=== PATIENT | female | born 1995 | race Caucasian/White ===

== ENCOUNTER 2018-09-08 23:56 | Emergency (ER) | payer SELFPAY ==
[~2018-09-08] VITALS: Ht 157.5 cm; Wt 119.7 kg
--- OUTSIDE RECORDS SUMMARY | 2018-09-09 00:02 | XMS REPORT ---
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 Role Phone NICKI MCINTOSH Unavailable PROBLEMS Unknown Problems ALLERGIES Substance Reaction Event Type Date Status Amoxicillin rash Drug Allergy Mar, Active ENCOUNTERS Encounter Location Date Diagnosis [facility] [address] [place] [id number] Apr, [facility] [address] [place] [id number] Mar, Dental examination Z01.20 and Caries K02.9 IMMUNIZATIONS No Known Immunizations SOCIAL HISTORY Never Assessed REASON FOR VISIT EMELY LEACH PLAN OF CARE Activity Details Follow Up 45 MIN TE Reason:14 AND 16 VITAL SIGNS MEDICATIONS Medication Instructions Dosage Frequency Start Date End Date Duration Status Magic Mouthwash Apply medicated swab to sore areas of the mouth to numb the pain As needed Dip cotton swab into medication Mar, As needed Active Align 4 MG Orally Once a day 1 capsule 24h Mar, 14 days Active Clindamycin HCl 300 MG Orally every 6 hrs 1 capsule 6h Mar, 10 days Active Keflex Active Risperidone Active Zoloft Active Vistaril Active HydrOXYzine Pamoate Active Topamax Active RESULTS No Results PROCEDURES Procedure Date Ordered Result Body Site LTD ORAL EVALUATION - PROBLEM FOCUS Apr 17, 2018 PANORAMIC FILM SEE ALSO CODE [id number] Apr 17, 2018 INSTRUCTIONS MEDICATIONS ADMINISTERED No Known Medications MEDICAL (GENERAL) HISTORY Type Description Date Medical History ARTHRIS Medical History back trouble Medical History thyroid problems Surgical History tumor removed 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
[2018-09-09] MEDS ORDERED: HYDROXYZINE PAMOATE 50 MG (00:22)
[2018-09-09] MEDS ORDERED: PRAZOSIN HCL 1 MG (00:22)
[2018-09-09] MEDS ORDERED: RISPERIDONE 3 MG (00:22)
[2018-09-09] MEDS ORDERED: ARIPIPRAZOLE 5 MG (00:22)
[2018-09-09] MEDS ORDERED: SERTRALINE 100MG (00:22)
[2018-09-09] MEDS ORDERED: TOPIRAMATE 25 MG (00:22)
[2018-09-09] MEDS ORDERED: ALB0.5V (00:25)
[2018-09-09] MEDS ORDERED: RIZA10TA23 PO (00:29)
[2018-09-09] MEDS ORDERED: diphenhydrAMINE 50 MG/ML INJ (BENADRYL) IM ONE (02:00)
[2018-09-09] MEDS ORDERED: KETOROLAC 60 MG/2 ML VIAL IM ONE (02:00)
--- NOTE | 2018-09-09 02:08 | ED Headache ---
General Chief Complaint: Head/Cervical Problems Stated Complaint: MIGRAINE,BLOODY NOSE,BP 181/67 Nursing Triage Note: c/o migraine with bloody nose and took her blood pressure and found it to be 161/87. felt she needed to be re-evaluated. Nursing Sepsis Screen: No Definite Risk Source: patient History of Present Illness Date Seen by Provider: Sep 09, 2018 Time Seen by Provider: 01:45 Initial Comments 23 yo F presenting with high blood pressure at home and headache as well as recurrent nosebleeds. She was having this ongoing for t he last month or so. It comes and goes for her. She was following with her provider from the clinic. They were recommending she get a CT scan and plan follow up from there. She was to take Maxalt for her headaches but she states it was not helping as much and she is out of it. Tonight her bp was up when she checked it at home and she was having nosebleeds again. She did not take anything for this and came to the ED. Usually she tries to take a cool wash cloth and put it over her eyes and her neck and this helps her some with the pain and her headache. She has improving on her nosebleed by the time she arrives in the ED without any intervention. Her Blood pressure was also improving by the time sh e arrived without having any treatment. Allergies and Home Medications Allergies Coded Allergies: amoxicillin (Verified Allergy, Unknown, 09/09/18) Uncoded Allergies: LYSOL (Allergy, Unknown, cannot breathe, 09/09/18) SEASONAL (Allergy, Unknown, 09/09/18) Patient Home Medication List Home Medication List Reviewed: Yes Review of Systems Review of Systems Constitutional: dizziness; No weakness Eyes: Photophobia Ears, Nose, Mouth, Throat: denies ear pain, denies nose discharge; epistaxis Respiratory: No cough, No short of breath Cardiovascular: No chest pain Gastrointestinal: No nausea, No vomiting Genitourinary: No dysuria, No frequency, No hesitancy, No incontinence Musculoskeletal: no symptoms reported Skin: No rash Past Nuoummz-Tgfdfb-Dztmha Hx Past Med/Social Hx: Reviewed Nursing Past Med/Soc Hx Patient Social History Alcohol Use: Denies Use Recreational Drug Use: No Smoking Status: Current Everyday Smoker Type Used: Cigarettes Recent Foreign Travel: No Contact w/Someone Who Travel: No Recent Infectious Disease Expo: No Recent Hopitalizations: No Physical Abuse: No Sexual Abuse: No Mistreated: No Fear: No Seasonal Allergies Seasonal Allergies: Yes Past Medical History Surgeries: Yes ("hernia mesh" "cyst removed from L foot") Gallbladder Respiratory: Yes Asthma Currently Using CPAP: No Currently Using BIPAP: No Cardiac: No Neurological: Yes Headaches /Migraines : No Hx : 0 Hx Para: 0 Hx Total # of Abortions (Sp): 0 Genitourinary: No Gastrointestinal: No Musculoskeletal: No Endocrine: No HEENT: No Cancer: No Psychosocial: Yes Schizophrenia Blood Disorders: No Physical Exam Vital Signs Vital Signs - First Documented 09/09/18 09/09/18 00:07 02:43 Temp 98.7 Pulse 79 Resp 18 B/P (MAP) 142/87 (105) Pulse Ox 98 Capillary Refill : Less Than 3 Seconds Height, Weight, BMI Height: 5'2.00" Weight: 264lbs. oz. 119.167421be; BMI Method:Stated General Appearance: WD/WN, no apparent distress HEENT: PERRL/EOMI, normal ENT inspection, TMs normal, pharynx normal Neck: non-tender, full range of motion, supple, normal inspection Cardiovascular: normal peripheral pulses, regular rate, rhythm Respiratory: chest non-tender, lungs clear, normal breath sounds, no respiratory distress, no accessory muscle use Gastrointestinal: normal bowel sounds, non tender, soft, no pulsatile mass Extremities: normal range of motion, non-tender, normal inspection, no pedal edema Psychiatric: alert, oriented x 3 Crainal Nerves: normal speech, PERRL Coordination/Gait: normal gait Motor/Sensory: no motor deficit, no sensory deficit Skin: normal color, warm/dry Lymphatic: no adenopathy Progress/Results/Core Measures Results/Orders My Orders Orders - GABRIELLE CAMPOS MD Ct Head Wo (09/09/18 01:56) Ketorolac Injection (Toradol Injection) (09/09/18 02:00) Diphenhydramine Injection (Benadryl Inje (09/09/18 02:00) Medications Given in ED Vital Signs/I&O 09/09/18 09/09/18 00:07 02:43 Temp 98.7 98.6 Pulse 79 82 Resp 18 20 B/P (MAP) 142/87 (105) 131/68 (89) Pulse Ox 98 Blood Pressure Mean: 105 Progress Progress Note #1: Progress Note Will try to treat with toradol and benadryl IM and see if that helps her headache. Will also check the CT head to look for other reasons for her HENRY and the nosebleeds. Her blood pressure and nosebleeds both improved without treatment before arrival in the ED. Progress Note #2: Progress Note She is having improved pain and symptoms with treatment. Her CT head was read as no acute findings. Counseled to follow up with clinic for continued concerns. May need Neuro follow up Diagnostic Imaging Diagonstic Imaging: CT Plain Films/CT/US/NM/MRI: head Comments NAME: SANJEEV ROSAS [facility] REC#: [id number] PT STATUS: DEP ER : 1995 PHYSICIAN: GABRIELLE CAMPOS MD ADMIT DATE: 09/08/18/ER FS Signed Date of Exam:09/09/18 CT HEAD WO PROCEDURE: CT head without contrast. TECHNIQUE: Multiple contiguous axial images were obtained through the brain without the use of intravenous contrast. Auto Exposure Controls were utilized during the CT exam to meet ALARA standards for radiation dose reduction. INDICATION: Migraine with bloody nose. FINDINGS: There is no evidence of intracranial hemorrhage. Ventricles and cortical gyral pattern are normal. There is no mass effect. Basal cisterns are clear. CP angles are normal. Good aeration of the mastoid air cells. Paranasal sinuses are clear. No calvarial fracture. IMPRESSION: Negative CT head without contrast. Dictated by: Dictated on workstation # [id number] Dict: 09/09/18 0739 Trans: 09/09/18 0814 ZAC [id number] Interpreted by: ENID JARAMILLO MD Electronically signed by: ENID JARAMILLO MD 09/09/18 0814 Departure Impression Primary Impression: Migraine Qualified Codes: G43.919 - Migraine, unspecified, intractable, without status migrainosus Additional Impressions: Anterior epistaxis Labile hypertension Disposition: 01 HOME, SELF-CARE Condition: Stable Departure-Patient Inst. Decision time for Depature: 02:30 Referrals: CARMELINA JONES MD (PCP) Primary Care Physician Patient Instructions: Migraine Headache (DC), Nosebleeds (DC) Add. Discharge Instructions: Follow up with clinic about your recurrent headaches and nosebleeds with high blood pressure. The CT scan of your head tonight did not show any acute findings and was normal, not showing a reason for your headaches or nosebleeds. All discharge instructions reviewed with patient and/or family. Voiced understanding. GABRIELLE CAMPOS MD Sep 09, 2018 02:08
[2018-09-09 02:43] VITALS: BP 131/68
--- NOTE | 2018-09-09 07:41 | Diagnostic Imaging Report ---
PROCEDURE: CT head without contrast. TECHNIQUE: Multiple contiguous axial images were obtained through the brain without the use of intravenous contrast. Auto Exposure Controls were utilized during the CT exam to meet ALARA standards for radiation dose reduction. INDICATION: Migraine with bloody nose. FINDINGS: There is no evidence of intracranial hemorrhage. Ventricles and cortical gyral pattern are normal. There is no mass effect. Basal cisterns are clear. CP angles are normal. Good aeration of the mastoid air cells. Paranasal sinuses are clear. No calvarial fracture. IMPRESSION: Negative CT head without contrast. Dictated by: Dictated on workstation # [id number]
== END 2018-09-09 02:43 | disposition home or self-care (01) ==
LOC: EDUNIT# 23:56 → ER FS 23:59
DX: G43.909 Migraine, unspecified, not intractable, without status migrainosus (principal); R04.0 Epistaxis; R03.0 Elevated blood-pressure reading, without diagnosis of hypertension; J45.909 Unspecified asthma, uncomplicated; F20.9 Schizophrenia, unspecified; F17.210 Nicotine dependence, cigarettes, uncomplicated; Z88.0 Allergy status to penicillin; Z88.8 Allergy status to other drugs, medicaments and biological substances; Z98.890 Other specified postprocedural states
CPT/HCPCS: 70450; 96372

== ENCOUNTER 2019-06-12 01:55 | Emergency (ER) | payer SELFPAY ==
[~2019-06-12] VITALS: Ht 157 cm; Wt 113.2 kg
[~2019-06-12 01:55] MED LIST: ALB0.5V; ARIPIPRAZOLE 5 MG; HYDROXYZINE PAMOATE 50 MG; PRAZOSIN HCL 1 MG; RISPERIDONE 3 MG; RIZA10TA23 PO; SERTRALINE 100MG; TOPIRAMATE 25 MG
[2019-06-12] MEDS ORDERED: AMOXICILLIN 500 MG (POLYMOX) CAP PO STA (02:15)
[2019-06-12] MEDS ORDERED: AMOX500C2 PO (02:27)
--- NOTE | 2019-06-12 02:27 | ED Cough/URI ---
General Chief Complaint: Cough/Cold/Flu Symptoms Stated Complaint: BREATHING PROBLEMS Nursing Triage Note: PT COMPLAINING OF A COUGH AND CONGESTION FOR A FEW DAYS Sepsis Screen: No Definite Risk Source: patient Exam Limitations: no limitations History of Present Illness Date Seen by Provider: Jun 12, 2019 Time Seen by Provider: 02:15 Initial Comments 24-year-old female presents to day history of cough and congestion. Her has had similar symptoms. She smokes one half pack of cigarettes a day. Cough has been productive of small amount of yellow sputum. No hemoptysis or chest pain reported. No fever or chills. She is trying to achieve and prefers not to have x-rays or other studies done. No history of significant lung problems or other medical conditions. Taking metformin and she says this to improve her fertility. She states that she does not have diabetes. Timing/Duration: yesterday Allergies and Home Medications Allergies Uncoded Allergies: LYSOL (Allergy, Unknown, cannot breathe, 09/09/18) SEASONAL (Allergy, Unknown, 09/09/18) Patient Home Medication List Home Medication List Reviewed: Yes Review of Systems Review of Systems Constitutional: no symptoms reported EENTM: see HPI Respiratory: see HPI, cough Cardiovascular: no symptoms reported Gastrointestinal: no symptoms reported Genitourinary: no symptoms reported : No Musculoskeletal: no symptoms reported Skin: no symptoms reported Psychiatric/Neurological: No Symptoms Reported Hematologic/Lymphatic: No Symptoms Reported Immunological/Allergic: no symptoms reported Past Ahgnivk-Cyptiw-Dcyboq Hx Past Med/Social Hx: Reviewed Nursing Past Med/Soc Hx Patient Social History Type Used: Cigarettes Recent Foreign Travel: No Contact w/Someone Who Travel: No Recent Infectious Disease Expo: No Recent Hopitalizations: No Physical Abuse: No Sexual Abuse: No Mistreated: No Seasonal Allergies Seasonal Allergies: Yes Past Medical History Surgeries: Yes ("hernia mesh" "cyst removed from L foot") Gallbladder Respiratory: Yes Asthma Currently Using CPAP: No Currently Using BIPAP: No Cardiac: No Neurological: Yes Headaches /Migraines Genitourinary: No Gastrointestinal: No Musculoskeletal: No Endocrine: No HEENT: No Cancer: No Psychosocial: Yes Schizophrenia Blood Disorders: No Physical Exam Vital Signs - First Documented 06/12/19 02:06 Temp 36.8 Pulse 94 Resp 16 B/P (MAP) 141/97 (112) Pulse Ox 99 O2 Delivery Room Air Capillary Refill : Less Than 3 Seconds Height: 5'2.00" Weight: 264lbs. oz. 119.778243il; 45.00 BMI Method:Stated General Appearance: WD/WN, no apparent distress, obese Eyes: Bilateral Eye Normal Inspection, Bilateral Eye PERRL, Bilateral Eye EOMI HEENT: PERRL/EOMI, normal ENT inspection, TMs normal, pharynx normal Neck: non-tender, full range of motion, supple, normal inspection Respiratory: chest non-tender, normal breath sounds, rhonchi (diffusely) Cardiovascular: regular rate, rhythm, no edema, no gallop, no JVD, no murmur Gastrointestinal: normal bowel sounds, non tender, soft, no organomegaly Extremities: normal range of motion, non-tender, normal inspection, no pedal edema, no calf tenderness 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, no motor/sensory deficits, alert, normal mood/affect, oriented x 3 Skin: normal color, warm/dry Lymphatic: no adenopathy Progress/Results/Core Measures Suspected Sepsis Recent Fever Within 48 Hours: No Infection Criteria Present: None New/Unexplained Altered Menta: No Sepsis Screen: No Definite Risk SIRS Temperature: Pulse: 94 Respiratory Rate: 16 Blood Pressure 141 /97 Mean: 112 Results/Orders My Orders Orders - GIFTY ISAAC MD Amoxicillin Capsule (Polymox Capsule) (06/12/19 02:15) Vital Signs/I&O 06/12/19 02:06 Temp 36.8 Pulse 94 Resp 16 B/P (MAP) 141/97 (112) Pulse Ox 99 O2 Delivery Room Air Capillary Refill : Less Than 3 Seconds Blood Pressure Mean: 112 Progress Note : Time: 02:26 Progress Note We discussed empiric treatment which patient prefers. She was given signs to watch for worsening or development of symptoms that might indicate a worsening of her condition. She voiced understanding and agreement with plan. She also understands that without testing undiagnosed conditions could be present. Counseling-Symptomatic: 3-10 Minutes Departure Impression Primary Impression: Bronchitis Disposition: 01 HOME, SELF-CARE Condition: Improved Departure-Patient Inst. Referrals: CARMELINA JONES MD (PCP/Family) Primary Care Physician Patient Instructions: Acute Bronchitis, Adult (DC) Add. Discharge Instructions: To drink plenty of fluids and use some Mucinex was recommended for her congestion. All discharge instructions reviewed with patient and/or family. Voiced understanding. Scripts Amoxicillin (Amoxicillin) 500 Mg Capsule 500 MG PO TID, #21 CAP 0 Refills Prov: GIFTY ISAAC MD 06/12/19 GIFTY ISAAC MD Jun 12, 2019 02:26
[2019-06-12 02:30] VITALS: BP 141/97
== END 2019-06-12 02:32 | disposition home or self-care (01) ==
LOC: EDUNIT# 01:55 → ER FS 02:03
DX: J45.909 Unspecified asthma, uncomplicated (principal); G43.909 Migraine, unspecified, not intractable, without status migrainosus; F20.9 Schizophrenia, unspecified; F17.210 Nicotine dependence, cigarettes, uncomplicated; Z79.84 Long term (current) use of oral hypoglycemic drugs; Z88.8 Allergy status to other drugs, medicaments and biological substances
CPT/HCPCS: 99283

== ENCOUNTER 2019-08-19 11:41 | Emergency (ER) | payer SELFPAY ==
[~2019-08-19] VITALS: Ht 157 cm; Wt 110.6 kg
[~2019-08-19 11:41] MED LIST changes: +AMOX500C2 PO
[2019-08-19] MEDS ORDERED: ASPIRIN 81 MG CHEW (CHILDREN'S ASA) PO ONE (12:00)
[2019-08-19 12:09] LABS: BASOPHILS % (AUTO) 0 % (0-10); EOSINOPHILS % (AUTO) 2 % (0-10); HEMATOCRIT 40 % (35-52); HEMOGLOBIN 13.2 G/DL (11.5-16.0); LYMPHOCYTES % (AUTO) 33 % (12-44); MEAN CORPUSCULAR HEMOGLOBIN 27 PG (25-34); MEAN CORPUSCULAR HGB CONC 33 G/DL (32-36); MEAN CORPUSCULAR VOLUME 82 FL (80-99); MEAN PLATELET VOLUME 10.1 FL (7.4-10.4); MONOCYTES % (AUTO) 6 % (0-12); NEUTROPHILS % (AUTO) 58 % (42-75); PLATELET COUNT 322 10^3/uL (130-400); RED CELL DISTRIBUTION WIDTH 14.3 % (10.0-14.5); WHITE BLOOD COUNT 11.8 10^3/uL (4.3-11.0)
[2019-08-19 12:10] LABS: BASOPHILS # (AUTO) 0.1 10^3/uL (0.0-0.1); EOSINOPHILS # (AUTO) 0.3 10^3/uL (0.0-0.3); LYMPHOCYTES # (AUTO) 3.9 X 10^3 (1.0-4.0); MONOCYTES # (AUTO) 0.7 X 10^3 (0.0-1.0); NEUTROPHILS # (AUTO) 6.9 X 10^3 (1.8-7.8)
--- NOTE | 2019-08-19 12:13 | ED Chest Pain ---
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 Pt describes pain as stabbing and radiating into L arm causing arm to be numb. Pt reports hx of high blood pressure but denies taking any meds at this time. Nursing Sepsis Screen: No Definite Risk Source: patient History of Present Illness Date Seen by Provider: Aug 19, 2019 Time Seen by Provider: 11:43 Initial Comments 24-year-old female presenting with complaints of left-sided chest pain. She states that she has sharp pain that started in her shoulder and radiates to her left arm. She has intermittent numbness in her left arm since the pain started. The pain has been fairly constant in the last 40 minutes. She has no recent trauma or injury. She has been having a mild cough. She has some shortness of breath since the pain came on. She denies having symptoms like this in the past. She has a family history of cardiac disease in her father when he was in his 20s he had his first heart attack. She has never seen a hospice music therapist or had stress testing. She is supposed to be on blood pressure medicine but states that she couldn't afford it. She is taking several vitamins and metformin to try and get . Allergies and Home Medications Allergies Uncoded Allergies: LYSOL (Allergy, Unknown, cannot breathe, 09/09/18) SEASONAL (Allergy, Unknown, 09/09/18) Home Medications Amoxicillin 500 Mg Capsule, 500 MG PO TID Prescribed by: GIFTY ISAAC on 06/12/19 0227 Patient Home Medication List Home Medication List Reviewed: Yes Review of Systems Review of Systems Constitutional: No chills, No diaphoresis, No fever, No malaise EENTM: No Symptoms Reported Respiratory: Cough (mild), Shortness of Air, SOA at Rest; Denies Stridor, Denies Wheezing Cardiovascular: Chest Pain (left side near shoulder that is sharp and stabbing 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 and has been constant); Denies Edema, Denies Irregular Heart Rate, Denies Lightheadedness, Denies Palpitations, Denies Syncope Gastrointestinal: Denies Nausea, Denies Vomiting Genitourinary: Denies Flank Pain, Denies Pain Musculoskeletal: no symptoms reported Skin: no symptoms reported Psychiatric/Neurological: Denies Headache; Paresthesia (intermittent tingling and pain to left arm) Past Ujqiglc-Akmazn-Xjlnts Hx Past Med/Social Hx: Reviewed Nursing Past Med/Soc Hx Patient Social History Alcohol Use: Denies Use Recreational Drug Use: No Smoking Status: Current Everyday Smoker Type Used: Cigarettes Recent Foreign Travel: Yes Contact w/Someone Who Travel: No Recent Infectious Disease Expo: No Recent Hopitalizations: No Seasonal Allergies Seasonal Allergies: Yes Past Medical History Surgeries: Yes ("hernia mesh" "cyst removed from L foot") Gallbladder Respiratory: Yes Asthma Currently Using CPAP: No Currently Using BIPAP: No Cardiac: No Neurological: Yes Headaches /Migraines Last Menstrual Period: Aug 04, 2019 Genitourinary: No Gastrointestinal: No Musculoskeletal: No Endocrine: No HEENT: No Cancer: No Psychosocial: Yes Schizophrenia Blood Disorders: No Physical Exam Vital Signs Vital Signs - First Documented Capillary Refill : Less Than 3 Seconds Height, Weight, BMI Height: 5'2.00" Weight: 264lbs. oz. 119.928665vs; 44.00 BMI Method:Stated General Appearance: No Apparent Distress, Obese HEENT: PERRL/EOMI, Pharynx Normal Neck: Full Range of Motion, Non Tender, Supple Respiratory: Chest Non Tender, Lungs Clear, Normal Breath Sounds Cardiovascular: Regular Rate, Rhythm, Normal Peripheral Pulses Gastrointestinal: Normal Bowel Sounds, No Pulsatile Mass, Non Tender, Soft Extremity: Normal Capillary Refill, Normal Inspection, Normal Range of Motion, Non Tender, No Calf Tenderness, No Pedal Edema Neurologic/Psychiatric: Alert, Oriented x3, No Motor/Sensory Deficits, Normal Mood/Affect, dyeing machine back tender II-XII Norm as Tested Skin: Normal Color, Warm/Dry Progress/Results/Core Measures Results/Orders Lab Results Laboratory Tests Test 08/19/19 11:45 08/19/19 13:51 Range/Units White Blood Count 11.8 H 4.3-11.0 10^3/uL Red Blood Count 4.93 4.35-5.85 10^6/uL Hemoglobin 13.2 11.5-16.0 G/DL Hematocrit 40 35-52 % Mean Corpuscular Volume 82 80-99 FL Mean Corpuscular Hemoglobin 27 25-34 PG Mean Corpuscular Hemoglobin Concent 33 32-36 G/DL Red Cell Distribution Width 14.3 10.0-14.5 % Platelet Count 322 130-400 10^3/uL Mean Platelet Volume 10.1 7.4-10.4 FL Neutrophils (%) (Auto) 58 42-75 % Lymphocytes (%) (Auto) 33 12-44 % Monocytes (%) (Auto) 6 0-12 % Eosinophils (%) (Auto) 2 0-10 % Basophils (%) (Auto) 0 0-10 % Neutrophils # (Auto) 6.9 1.8-7.8 X 10^3 Lymphocytes # (Auto) 3.9 1.0-4.0 X 10^3 Monocytes # (Auto) 0.7 0.0-1.0 X 10^3 Eosinophils # (Auto) 0.3 0.0-0.3 10^3/uL Basophils # (Auto) 0.1 0.0-0.1 10^3/uL Prothrombin Time 13.0 12.2-14.7 SEC INR Comment 1.0 0.8-1.4 Activated Partial Thromboplast Time 26 24-35 SEC Sodium Level 137 135-145 MMOL/L Potassium Level 5.0 3.6-5.0 MMOL/L Chloride Level 92 L 98-107 MMOL/L Carbon Dioxide Level 24 21-32 MMOL/L Anion Gap 21 H 5-14 MMOL/L Blood Urea Nitrogen 14 7-18 MG/DL Creatinine 1.15 0.60-1.30 MG/DL Estimat Glomerular Filtration Rate 58 BUN/Creatinine Ratio 12 Glucose Level 102 70-105 MG/DL Calcium Level 9.7 8.5-10.1 MG/DL Corrected Calcium 9.3 8.5-10.1 MG/DL Magnesium Level 2.1 1.6-2.4 MG/DL Total Bilirubin 0.3 0.1-1.0 MG/DL Aspartate Amino Transf (AST/SGOT) 16 5-34 U/L Alanine Aminotransferase (ALT/SGPT) 15 0-55 U/L Alkaline Phosphatase 79 40-136 U/L Troponin I < 0.30 < 0.30 <0.30 NG/ML Pro-B-Type Natriuretic Peptide 13.9 <75.0 PG/ML Total Protein 7.8 6.4-8.2 GM/DL Albumin 4.5 3.2-4.5 GM/DL Lipase 12 8-78 U/L Serum Test, Qualitative NEGATIVE NEGATIVE My Orders Orders - GABRIELLE CAMPOS MD Ekg Tracing (08/19/19 11:45) Cbc With Automated Diff (08/19/19 11:58) Magnesium (08/19/19 11:58) Ekg Tracing (08/19/19 11:58) Comprehensive Metabolic Panel (08/19/19 11:58) Protime With Inr (08/19/19 11:58) Partial Thromboplastin Time (08/19/19 11:58) O2 (08/19/19 11:58) Monitor-Rhythm Ecg Trace Only (08/19/19 11:58) Aspirin Chewable Tablet (Baby Aspirin Ch (08/19/19 12:00) Ed Iv/Invasive Line Start (08/19/19 11:58) Lipase (08/19/19 11:58) Troponin I Fs (08/19/19 11:58) Probnp Fs (08/19/19 11:58) Chest Pa/Lat (2 View) (08/19/19 11:58) Hcg,Qualitative Serum (08/19/19 11:59) Morphine Injection (Morphine Injection (08/19/19 12:34) Nitroglycerin Ointment (Nitrobid Ointme (08/19/19 12:34) Troponin I Fs (08/19/19 14:01) Medications Given in ED Current Medications Medications Dose Ordered Sig/Stevan Route Start Time Stop Time Status Last Admin Dose Admin Aspirin 324 mg ONCE ONCE PO 08/19/19 12:00 08/19/19 12:01 DC 08/19/19 12:06 324 MG Vital Signs/I&O 08/19/19 08/19/19 08/19/19 11:41 11:41 15:10 Temp 36.7 36.5 Pulse 102 84 Resp 15 15 B/P (MAP) 148/88 (108) 126/96 (108) Pulse Ox 100 100 O2 Delivery Room Air Room Air Room Air Blood Pressure Mean: 108 Progress Progress Note #1: Progress Note check labs and CXR. ECG shows no acute ST elevation but she has some T wave flattening. Give aspirin to help with pain. if not improving she may need ntg or morphine for pain as well. Progress Note #2: Time: 12:34 Progress Note Labs all look stable without acute significant abnormality. Troponin is negative. Will add on morphine and nitroglycerin in case she has more pain while waiting on the second troponin to be drawn around 2 hours Progress Note #3: Time: 14:47 Progress Note The second troponin is still 0. Updated patient and family about results. Counseled on follow-up and return precautions. Advised to check with primary and she may need to see cardiology for further testing and evaluation Initial ECG Impression Date: Aug 19, 2019 Initial ECG Impression Time: 11:46 Initial ECG Rate: 88 Initial ECG Rhythm: Normal Sinus Initial ECG Comparisson: No Previous ECG Available Comment Sinus arrhythmia with heart rate of 88 bpm. UT interval 127 ms. She has some T- wave flattening in the anterior leads. There is no ST elevation. QT interval of 357 ms and QTc interval 432 ms. There is no prior tracing immediately available for comparison. Diagnostic Imaging Diagonstic Imaging: Xray Plain Films/CT/US/NM/MRI: chest Comments NAME: SAN[facility]EEV ROSAS [facility] REC#: [id number] PT STATUS: REG ER : 1995 PHYSICIAN: GABRIELLE CAMPOS MD ADMIT DATE: 08/19/19/ER FS Signed Date of Exam:08/19/19 CHEST PA/LAT (2 VIEW) Indication: Chest pain PA and lateral chest Heart size and pulmonary vascularity are normal. Lungs are clear. There are no effusions or pneumothoraces. IMPRESSION: Negative chest Dictated by: Dictated on workstation # [id number] Dict: 08/19/19 1224 Trans: 08/19/19 1225 [id number] Interpreted by: MANUEL NEGRON MD Electronically signed by: MANUEL NEGRON MD 08/19/19 1225 Departure Impression Primary Impression: Chest pain Qualified Codes: R07.9 - Chest pain, unspecified Additional Impressions: Left arm numbness Essential hypertension Disposition: 01 HOME, SELF-CARE Condition: Stable Departure-Patient Inst. Decision time for Depature: 14:58 Referrals: CARMELINA WANG MD (PCP/Family) Primary Care Physician Patient Instructions: DASH Diet, High Blood Pressure (DC), Chest Pain (DC) Add. Discharge Instructions: Stay well hydrated and drink plenty of water Follow up with clinic for continued concerns and Dr. Wang may want you to see Cardiology for stress test or other testing since you have had a family history with your Father having a heart attack in his 20s. Return or seek medical care if you have worsening pain or more symptoms, especially if you have nausea, sweating, shortness of breath along with your chest pain. All discharge instructions reviewed with patient and/or family. Voiced understanding. GABRIELLE CAMPOS MD Aug 19, 2019 12:12
--- NOTE | 2019-08-19 12:26 | Diagnostic Imaging Report ---
Indication: Chest pain PA and lateral chest Heart size and pulmonary vascularity are normal. Lungs are clear. There are no effusions or pneumothoraces. IMPRESSION: Negative chest Dictated by: Dictated on workstation # [id number]
[2019-08-19] MEDS ORDERED: morphine INJ 10 MG/ML 1ML (SYR OR VIAL) IVP STA (12:34)
[2019-08-19] MEDS ORDERED: NITROGLYCERIN 2% OINT 1 GM UNIT DOSE PACKET TOP STA (12:34)
--- NOTE | 2019-08-19 12:39 | NUR ---
Pt rating pain 2/10 after baby aspirin. Denies needs at this time.
[2019-08-19 12:47] LABS: ALBUMIN 4.5 GM/DL (3.2-4.5); BILIRUBIN,TOTAL 0.3 MG/DL (0.1-1.0); CALCIUM 9.7 MG/DL (8.5-10.1); CREATININE SERUM 1.15 MG/DL (0.60-1.30); MAGNESIUM 2.1 MG/DL (1.6-2.4); TOTAL PROTEIN 7.8 GM/DL (6.4-8.2)
[2019-08-19 15:10] VITALS: BP 126/96
== END 2019-08-19 15:10 | disposition home or self-care (01) ==
LOC: EDUNIT# 11:41 → ER FS 11:43
DX: R07.89 Other chest pain (principal); R20.0 Anesthesia of skin; I10 Essential (primary) hypertension; F17.210 Nicotine dependence, cigarettes, uncomplicated; Z88.8 Allergy status to other drugs, medicaments and biological substances
CPT/HCPCS: 36415; 71046; 80053; 83690; 83735; 83880; 84484; 84703; 85025; 85610; 85730; 93005; 93041

== ENCOUNTER 2020-02-24 05:41 | Outpatient (CLI) | payer SELFPAY ==
[~2020-02-24] VITALS: Ht 157.5 cm; Wt 110.9 kg
[2020-02-24] MEDS ORDERED: FERR240T15 PO (13:03)
[2020-02-24] MEDS ORDERED: MULT-884 PO (13:03)
== END 2020-02-24 13:00 ==
LOC: PREOP 05:41
PROVIDERS: ATTEND Surgery
DX: Z01.818 Encounter for other preprocedural examination (principal)

== ENCOUNTER 2020-03-02 06:52 | Day surgery (SDC) | payer OTHER ==
[~2020-03-02] VITALS: Ht 157 cm; Wt 110.9 kg
[2020-03-02] VITALS (8 sets, daily range): BP systolic 110–157; BP diastolic 73–85
[~2020-03-02 06:52] MED LIST changes: +FERR240T15 PO; +MULT-884 PO
[2020-03-02] MEDS ORDERED: BUP/EPI 0.25% 1:200,000 (MARCAINE) 30 ML VIAL ONE (07:07)
[2020-03-02] MEDS ORDERED: LACTATED RINGERS 1,000 ML IV PRN (07:09)
[2020-03-02] MEDS ORDERED: ceFAZolin INJECTION 1,000 MG in WATER (STERILE) FOR INJECTION 10 ML IV ONE (07:15)
[2020-03-02] MEDS ORDERED: CATHETER FLUSH 10 ML SYR IV PRN (07:15)
[2020-03-02] MEDS ORDERED: PROPOFOL INJECTION 50 ML IV ONE ×2 (07:22→08:40)
[2020-03-02] MEDS ORDERED: fentaNYL INJECTION 100 MCG/2 ML AMP ONE (07:22)
[2020-03-02] MEDS ORDERED: MIDAZOLAM 2 MG/2 ML (VERSED) VIAL ONE (07:23)
[2020-03-02] MEDS ORDERED: ONDANSETRON 4 MG/2 ML (SDV) Z0FRAN ONE (07:34)
--- NOTE | 2020-03-02 08:08 | Progress Note-Pre Operative ---
Pre-Operative Progress Note H&P Reviewed The H&P was reviewed, patient examined and no changes noted. Time Seen by Provider: 08:02 Date H&P Reviewed: Mar 02, 2020 Time H&P Reviewed: 08:03 Pre-Operative Diagnosis: right breast mass, side marked ENID MADISON DO Mar 02, 2020 08:08
--- NOTE | 2020-03-02 08:40 | Progress Note-Post Operative ---
Post-Operative Progess Note Surgeon (s)/Vending Route Servicer (s) Surgeon ENID MADISON DO Vending Route Servicer: MATT Madera Pre-Operative Diagnosis right breast mass, side marked Post-Operative Diagnosis same pending path Procedure & Operative Findings Date of Procedure 03/02/20 Procedure Performed/Findings Exc right breast mass Anesthesia Type LMA Estimated Blood Loss Estimated blood loss (mL): scant Specimens/Packing Specimens Removed right breast mass ENID MADISON DO Mar 02, 2020 08:40
[2020-03-02] MEDS ORDERED: HYDR-4226 PO (08:41)
--- NOTE | 2020-03-02 08:42 | Discharge Inst-Surgical ---
Discharge Inst-Surgical Depart Medication/Instructions New, Converted or Re-Newed RX: RX Given to Pt/Family Patient Instructions Follow up Appt: Make appointment for 1 week. [phone] Instructions: No strenuous activity. May shower in 24 hours, no tub bath or soaking. Use incentive spirometer at home as directed. No Smoking Skin/Wound Care: May remove bandages in am. You need to leave the Dermabond on incision it will fall off on it's own. Symptoms to Report: Appetite Changes, Extremity Discoloration, Numbness/Tingling, Swelling Increased, Bleeding Excessive, Eyesight Changes, Pain Increased, Urine Color Elsi nge, Constipation(Persistent), Fever over 101 degree F, Pain/Pressure in chest, Urinating Difficulty, Cough Up/Vomit Blood, Heart Beat Irreg/Pounding, Pain/Pressure in jaw, Cramps in feet or legs, Lightheadedness, Pain/Pressure in shoulder, Diarrhea(Persistent), Memory Changes Suddenly, Questions/Concerns, Weight gain consecutive days, Dizziness/Fainting, Nausea/Vomiting, Shortness of Breath, Weight gain over 2 pounds If questions or concerns contact your physician Or seek help at emergency department. Activity Activity as Tolerated: Yes Activity Instructions: Avoid Stress to Incision Driving Instructions: No Driving/Refer to Dr. Canales Discharge Diet: No Restrictions Diet After 24 Hours: Clear Liquid if Nauseous If Any Problems/Questions/Issu: Contact Your Physician, Go to Emergency Room Skin/Wound Care Infection Signs and Symptoms: Increased Redness, Foul Odor of Wound, Increased Drainage, Skin Itchy or Has a Rash, Increased Swelling, Temperature Above 101 F Wound Care Comment: Wear tight fitting bra 13/01 for one week; except to shower. Bathing Instructions: Shower Stitches/[place]/Dermabond Dis: Dermabond Ice Pack: Ice On and Off Site (as needed for pain) ENID MADISON DO Mar 02, 2020 08:42
[2020-03-02] MEDS ORDERED: ONDANSETRON 4 MG/2 ML (SDV) Z0FRAN IVP PRN (09:00)
[2020-03-02] MEDS ORDERED: morphine INJ 10 MG/ML 1ML (SYR OR VIAL) IVP ONE (09:00)
[2020-03-02] MEDS ORDERED: MEPERIDINE (DEMEROL) INJ 50 MG/ML IVP ONE (09:00)
[2020-03-02] MEDS ORDERED: fentaNYL INJECTION 100 MCG/2 ML AMP IVP ONE (09:00)
--- NOTE | 2020-03-02 09:29 | Anesthesia-General Post-Op ---
General Patient Condition Mental Status/LOC: Same as Preop Cardiovascular: Satisfactory Nausea/Vomiting: Absent Respiratory: Satisfactory Pain: Controlled Complications: Absent Post Op Complications Complications None Follow Up Care/Instructions Patient Instructions None needed. Anesthesia/Patient Condition Patient Condition Patient is doing well, no complaints, stable vital signs, no apparent adverse anesthesia problems. No complications reported per nursing. SHILO SAEZ CRNA Mar 02, 2020 09:29
[2020-03-02] MEDS ORDERED: TRM50T PO (09:56)
--- NOTE | 2020-03-02 21:42 | OPERATIVE REPORT ---
DATE OF SERVICE: 03/02/2020 PREOPERATIVE DIAGNOSIS: Right breast mass. POSTOPERATIVE DIAGNOSIS: Right breast mass, pending pathology. PROCEDURE: Excision of right breast mass. SURGEON: Deni Marin DO PLAN MANAGER: Elsie Hernández MS3 ANESTHESIA: LMA. SPECIMEN: Right breast mass. BLOOD LOSS: Scant. FLUIDS: Per anesthesia. POSTOPERATIVE CONDITION: Stable. INDICATION FOR PROCEDURE: The patient is a 25-year-old female who has a mass on the right breast right around the 9 o'clock position with flaky skin. Today, it was actually scabbed up. FINDINGS: The patient had a right breast mass removed and sent to pathology. PROCEDURE NOTE: After informed consent was obtained, the patient was brought to the operating room, placed on the operating table in supine position. She was sterilely prepped and draped in normal fashion. Local lidocaine was used to infiltrate around this mass, it was more like flaky skin and with a scab in the middle right at the 9 o'clock spot on the areola and nipple line. Elected to do an elliptical incision to remove this, injected around this and under this with lidocaine and then made an incision with a #15 blade, carried down through the skin into subcutaneous tissue going around this area and the scab, going down just into the initial breast tissue layer, deepened down through subcutaneous tissue with Bovie electrocautery, removed this piece en bloc and passed off the table, then irrigated. Hemostasis obtained using Bovie electrocautery, then closed the incision with 4-0 undyed Monocryl, 5 interrupted subcuticular stitches. Area was cleaned and dried. Dermabond skin Affix was placed and then pressure fluff dressing placed. The patient tolerated the procedure. Sponge, instrument and needle count correct at the end of the case. Job ID: [id number] DocumentID: [id number] Dictated Date: 03/02/2020 13:50:05 Fuel Operator Date: 03/02/2020 21:41:32 Dictated By: DENI MARIN DO
== END 2020-03-02 10:25 | disposition home or self-care (01) ==
LOC: SDC 06:52
PROVIDERS: ATTEND Surgery
DX: N63.10 Unspecified lump in the right breast, unspecified quadrant (principal); I10 Essential (primary) hypertension; F41.9 Anxiety disorder, unspecified; F17.210 Nicotine dependence, cigarettes, uncomplicated; F32.9 Major depressive disorder, single episode, unspecified; F20.9 Schizophrenia, unspecified; J45.909 Unspecified asthma, uncomplicated; E66.01 Morbid (severe) obesity due to excess calories; Z68.42 Body mass index [BMI] 45.0-49.9, adult; Z79.899 Other long term (current) drug therapy; Z88.3 Allergy status to other anti-infective agents; Z88.1 Allergy status to other antibiotic agents
CPT/HCPCS: 84703; 87081; 88305